=== PATIENT | male | born 1970 | race Caucasian/White ===

== ENCOUNTER 2016-12-25 17:40 | Observation (INO) ==
--- NOTE | 2016-12-25 18:07 | ED.PDOC ---
General ED Provider: Dr. MARIZOL HUDSON Chief Complaint: Psychiatric Complaint Stated Complaint: Patient brought in by brother and nephew whom he lives with after he didn't show up for work today and they found a note from him that stated "alcohol won" and it's "time to check out." Patient acknowledges writing note and admits to suididal ideation. He has no plan. Patient is an alcoholic who has been "dry" since doing inpatient therapy in June 2016. Denies recent alcohol use or overdosing on anything. Time Seen by Physician: 18:01 Mode of Arrival: Walk-In Information Source: Patient Exam Limitations: No limitations Primary Care Provider: HUMZA ARIAS Nursing and Triage Documentation Reviewed and Agree: Yes Psychological Complaint Exam - Psychiatric Complaint/Exam Patient Complains Of: Present: Depression, Suicidal thoughts Onset/Duration: unclear, voiced them to day Symptoms Are: Still present Timing: Constant Initial Severity: Moderate Current Severity: Moderate Character: Present: Depressed Aggravating: Reports: Alcohol use Related History: Reports: Suicidal thoughts, Prior attempts (patient denies previous suicidal ideation but is listed as such for ED visit in 2011), Drug ingestion. Denies: Suicidal plan, Suicidal gestures, Homicidal thoughts, Homicidal plan, Homicidal gestures, Recent stressors Patient Accompanied By: Family Patient In Custody Of Police: No Social Withdrawal Present: Yes Social Isolation Present: No Prior Suicide Attempt: No Injury From Prior Suicide Attempt: No Related Surgical History: Reports: None Patient Uncooperative For Exam: No Mood: Present: Depressed Appearance: Present: Clean Thought Process: Present: Logical Insight: Present: Good Memory: Intact Judgement: Normal Danger To Others: No Patient Medically Stable For: Psych evaluation, Referral, Transfer Differential Diagnoses: Depression, Suicidal Ideation Review of Systems - Review Of Systems Constitutional: Reports: No symptoms Eyes: Reports: No symptoms Ears, Nose, Mouth, Throat: Reports: No symptoms Respiratory: Reports: No symptoms Cardiac: Reports: No symptoms GI: Reports: No symptoms : Reports: No symptoms Musculoskeletal: Reports: No symptoms Skin: Reports: No symptoms Neurological: Reports: Depressed All Other Systems: Other (Psychiatric: depressed about his alcoholism. Denies any other issues.) Past Medical History - Past Medical History Previously Healthy: Yes Endocrine: Reports: None Cardiovascular: Reports: Hypertension Respiratory: Reports: None Hematological: Reports: None Gastrointestinal: Reports: None Genitourinary: Reports: None Neuro/Psych: Reports: None Musculoskeletal: Reports: None, Other (left knee damaged in high school. painful and unstable x many years. Ortho told him he's too young for a TKA which otherwise is the appropriate therapy) Cancer: Reports: None Other Pertinent Past Medical History: Alcoholism - Surgical History General Surgical History: Reports: None - Family History Family History: Reports: None - Social History Smoking Status: Current every day smoker, Light tobacco smoker (1/2 PPD) Hx Substance Use: No Alcohol Screening: Heavy (beer - denies recent ingestion) Lives: With family (brother and nephew) - Immunizations Tetanus Shot up to Date: No Influenza Vaccine within 12 Months: No Pneumococcal Vaccine up to Date: No Physical Exam - Physical Exam Appearance: Well-appearing, Well-nourished Ill-appearing: None Pain Distress: None Eyes: ROSITA, EOMI, Conjunctiva clear ENT: Ears normal, Nose normal, Oropharynx normal Neck: Supple Respiratory: Airway patent, Breath sounds clear, Breath sounds equal, Respirations nonlabored Cardiovascular: RRR, Pulses normal, No rub, No murmur GI/: Soft, Nontender, No masses, Bowel sounds normal, No Organomegaly Musculoskeletal: Normal strength, ROM intact, No edema, No calf tenderness Skin: Warm, Dry, Normal color Neurological: Sensation intact, Motor intact, Reflexes intact, Cranial nerves intact, Alert, Oriented Psychiatric: Depressed Interpretation - EKG Interpretation Time of EKG #1: 18:18 Rate: Normal Rhythm: Sinus Ectopy: None [place]: NL ST Segment: Normal Interpretation: possible septal infacrt, age undetermined Physician Notification - Case Discussed Endorsed To/Discussed With: Dr. Ayers Time of Discussion: 19:00 Critical Care Note - Critical Care Note Total Time (mins): 0 Course - Course Hematology/Chemistry: 12/25/16 18:17 12/25/16 18:17 Orders, Labs, Meds: Lab Review 12/25/16 12/25/16 12/25/16 18:17 18:17 18:17 WBC 5.76 RBC 4.35 L Hgb 14.4 Hct 40.3 L MCV 92.6 MCH 33.1 H MCHC 35.7 H RDW Coeff of Sarbjit 11.9 Plt Count 266 Immature Gran % (Auto) 0.2 Neut % (Auto) 55.5 Lymph % (Auto) 33.7 [place] % (Auto) 8.0 Eos % (Auto) 1.7 Baso % (Auto) 0.9 Immature Gran # (Auto) 0.0 Neut # 3.2 Lymph # 1.9 [place] # 0.5 Eos # 0.1 Baso # 0.1 Sodium 141 Potassium 3.7 Chloride 104 Carbon Dioxide 24 Anion Gap 16.7 BUN 10 Creatinine 0.82 Estimated GFR (MDRD) 101.00 BUN/Creatinine Ratio 12.19 Glucose 84 Calcium 9.1 Total Bilirubin 0.32 AST 19 ALT 15 Alkaline Phosphatase 59 Total Protein 7.2 Albumin 4.0 Globulin 3.2 Albumin/Globulin Ratio 1.25 TSH 0.871 Urine Color Yellow Urine Clarity Clear Urine pH 5.5 Ur Specific [place] <=1.005 Urine Protein Negative Urine Glucose (UA) Negative Urine Ketones Trace Urine Blood Negative Urine Nitrite Negative Urine Bilirubin Negative Urine Urobilinogen 0.2 Ur Leukocyte Esterase Negative Salicylate Level mg/dL < 5.0 Urine Opiates Screen Ur Oxycodone Screen Urine Methadone Screen Ur Propoxyphene Screen Acetaminophen < 3 L Ur Barbiturates Screen U Tricyclic Antidepress Ur Phencyclidine Scrn Ur Amphetamine Screen U Methamphetamines Scrn U Benzodiazepines Scrn Urine Cocaine Screen U Cannabinoids Screen Plasma/Serum Alcohol 243.0 H 12/25/16 18:17 WBC RBC Hgb Hct MCV MCH MCHC RDW Coeff of Sarbjit Plt Count Immature Gran % (Auto) Neut % (Auto) Lymph % (Auto) [place] % (Auto) Eos % (Auto) Baso % (Auto) Immature Gran # (Auto) Neut # Lymph # [place] # Eos # Baso # Sodium Potassium Chloride Carbon Dioxide Anion Gap BUN Creatinine Estimated GFR (MDRD) BUN/Creatinine Ratio Glucose Calcium Total Bilirubin AST ALT Alkaline Phosphatase Total Protein Albumin Globulin Albumin/Globulin Ratio TSH Urine Color Urine Clarity Urine pH Ur Specific [place] Urine Protein Urine Glucose (UA) Urine Ketones Urine Blood Urine Nitrite Urine Bilirubin Urine Urobilinogen Ur Leukocyte Esterase Salicylate Level mg/dL Urine Opiates Screen Negative Ur Oxycodone Screen Negative Urine Methadone Screen Negative Ur Propoxyphene Screen Negative Acetaminophen Ur Barbiturates Screen Negative U Tricyclic Antidepress Negative Ur Phencyclidine Scrn Negative Ur Amphetamine Screen Negative U Methamphetamines Scrn Negative U Benzodiazepines Scrn Negative Urine Cocaine Screen Negative U Cannabinoids Screen Negative Plasma/Serum Alcohol Orders Category Date Time Status [facility] ADMISSION 12/25/16 22: 51 Active EKG-(ED ONLY) Stat CARDIO 12/25/16 18:09 Completed OXYGEN Routine CARDIO 12/25/16 22:52 Active ACTIVITY .BR with BRP CARE 12/25/16 22:51 Active INTAKE & OUTPUT Q8HR CARE 12/25/16 22:51 Completed TELEMETRY MONITORING TELE CARE 12/25/16 22:51 Active VITAL SIGNS Q4HR CARE 12/25/16 22:51 Active REGULAR DIET DIETARY 12/25/16 Breakfast Ordered ALCOHOL LEVEL [BLOOD ALCOHOL] Stat LAB 12/25/16 18:17 Completed ASPIRIN LEVEL [SALICYLATE] Stat LAB 12/25/16 18:17 Completed CBC W/ AUTO DIFF Stat LAB 12/25/16 18:17 Completed COMPREHENSIVE METABOLIC PANEL Stat LAB 12/25/16 18:17 Completed THYROID STIMULATING HORMONE Stat LAB 12/25/16 18:17 Completed TYLENOL LEVEL [ACETAMINOPHEN] Stat LAB 12/25/16 18:17 Completed URINALYSIS C & S IF INDICATED Stat LAB 12/25/16 18:17 Completed URINE DRUG SCREEN (RAPID FOR ED) [DRUG SCREEN, URINE, LAB 12/25/16 18:17 Completed RAPID] Stat Sodium Chloride 0.9% [Sodium Chloride] 1,000 ml MEDS 12/25/16 23:00 Active Mvi, Adult No.1 with Vit K [Infuvite Adult] 10 ml IV 83 mls/hr Sodium Chloride 0.9% [Sodium Chloride] 1,000 ml MEDS 12/25/16 23:00 Active IV 75 mls/hr Vitamin B-1 Inj [Thiamine] MEDS 12/25/16 22:52 Discontinued 100 mg IVP ONCE STA RESUSCITATION STATUS Routine OTHERS 12/25/16 22:51 Ordered Medications Generic Name Dose Route Start Last Admin Trade Name Freq PRN Reason Stop Dose Admin Sodium Chloride 1,000 mls @ 75 mls/hr 12/25/16 23:00 Sodium Chloride IV .[id number] GWENDOLYN Multivitamins/Minerals 10 ml/ 1,010 mls @ 83 mls/hr 12/25/16 23:00 12/25/16 23:55 Sodium Chloride IV 83 mls/hr .[id number] GWENDOLYN Administration Sodium Chloride 1 syr 12/25/16 23:48 Saline Flush IVF PRN PRN To flush IV Discontinued Medications Generic Name Dose Route Start Last Admin Trade Name Freq PRN Reason Stop Dose Admin Thiamine HCl 100 mg 12/25/16 22:52 12/25/16 23:54 Thiamine IVP 12/25/16 22:53 100 mg ONCE STA Administration Vital Signs: Temp Pulse Resp BP Pulse Ox 12/25/16 17:41 98.8 F 129 H 20 107/77 95 Departure - Departure Time of Disposition: 23:00 Disposition: PLACED OBSERVATION Discharge Problem: Depression with suicidal ideation, Alcoholism Discharge Problem: (Ruled Out): Depression Condition: Good Pt referred to PMD for follow-up: Yes (Follow up after discharge) Allergies/Adverse Reactions: Allergies No Known Allergies Allergy (Verified 12/25/16 17:49) Home Medications: Ambulatory Orders 1 [No Reported Medications] 12/25/16 Disposition Discussed With: Patient (by Dr. Lala), Family (by Dr. Lala)
[2016-12-25 18:21] LABS: BASOPHILS # (AUTO) 0.1 K/uL (0-0.2); BASOPHILS % (AUTO) 0.9 % (0.0-3.0); EOSINOPHILS # (AUTO) 0.1 K/ul (0.0-0.7); EOSINOPHILS % (AUTO) 1.7 % (0.0-7.0); HEMATOCRIT 40.3 % (42.0-52.0); HEMOGLOBIN 14.4 g/dl (14.0-18.0); IMMATURE GRANULOCYTE % (AUTO) 0.2 % (0.0-5.0); LYMPHOCYTES # (AUTO) 1.9 K/uL (0.60-3.4); LYMPHOCYTES % (AUTO) 33.7 (10.0-50.0); MEAN CORPUSCULAR HEMOGLOBIN 33.1 pg (27.0-31.0); MEAN CORPUSCULAR HGB CONC 35.7 (31.8-35.4); MEAN CORPUSCULAR VOLUME 92.6 fl (80.0-94.0); MONOCYTES # (AUTO) 0.5 K/uL (0.4-2.0); NEUTROPHILS # (AUTO) 3.2 K/ul (2.0-6.9); NEUTROPHILS % (AUTO) 55.5; PLATELET COUNT 266 10^3/uL (140-440); RED BLOOD COUNT 4.35 10^6/ul (4.70-6.10); WHITE BLOOD COUNT 5.76 K/ul (4.2-10.2)
[2016-12-25 18:23] LABS: BILIRUBIN,URINE Negative (NEGATIVE); KETONES,URINE Trace (NEGATIVE); LEUKOCYTE ESTERASE ,URINE Negative (NEGATIVE); NITRITE,URINE Negative (NEGATIVE); PH,URINE 5.5 (5-9); PROTEIN,URINE Negative (NEGATIVE); URINE, BLOOD Negative (NEGATIVE)
[2016-12-25 18:29] LABS: ADD URINE MICROSCOPIC NO
[2016-12-25 18:33] LABS: COCAIN SCREEN,URINE NEGATIVE (NEGATIVE)
[2016-12-25 19:01] LABS: ACETAMINOPHEN < 3 ug/ml (10-30); ALANINE AMINOTRANSFERASE 15 U/L (12-78); ALBUMIN/GLOBULIN RATIO 1.25; ALKALINE PHOSPHATASE 59 U/L (50-136); ANION GAP 16.7; ASPARTATE AMINO TRANSFERASE 19 U/L (15-37); BILIRUBIN,TOTAL 0.32 mg/dL (0.00-1.20); BLOOD UREA NITROGEN 10 mg/dL (7-18); BUN/CREATININE RATIO 12.19; CALCIUM 9.1 mg/dL (8.2-10.2); CARBON DIOXIDE 24 mmol/L (21-32); CHLORIDE 104 mmol/L (98-107); CREATININE 0.82 mg/dL (0.60-1.10); GLUCOSE 84 mg/dL (70-100); POTASSIUM 3.7 mmol/L (3.5-5.1); SALICYLATE < 5.0 mg/dL (2.8-20.0); SODIUM 141 mmol/L (136-145); TOTAL PROTEIN 7.2 g/dL (6.4-8.2)
[2016-12-25] MEDS ORDERED: THIAMINE IVP STA (22:52)
[2016-12-25] MEDS ORDERED: SODIUM CHLORIDE 1,000 ML IV SCH (23:00)
[2016-12-25] MEDS ORDERED: INFUVITE ADULT 10 ML in SODIUM CHLORIDE 1,000 ML IV SCH (23:00)
[2016-12-25] MEDS ORDERED: INFUVITE ADULT IV ONE (23:48)
[2016-12-26 00:20] VITALS: BMI 17.7
[2016-12-26 10:08] VITALS: BP 110/80; TEMP 98.6
--- NOTE | 2017-01-05 15:02 | SSS ---
DATE OF SERVICE: 12/26/16 CHIEF COMPLAINT: The patient is having suicidal thoughts. HISTORY OF PRESENT ILLNESS: This is a 46-year-old male who was brought to the emergency room by the family. He has been having thoughts of hurting himself and left a note at brother's son that stated he wanted to commit suicide. He was reluctant to discuss with the nurse, has problems with alcohol and had been drinking today. The patient was evaluated initially by Dr. Beltran. Blood alcohol level was 243. Mental Health was called and came and talked with the patient and advised placement for the patient but said they would not take the patient until alcohol level was normal. At that time, the patient was admitted to hospital for observation. PAST MEDICAL HISTORY: Hypertension Coronary artery disease - did not specify what time Diverticulosis Depression Substance use Alcohol use Nicotine use PAST SURGICAL HISTORY: None SOCIAL HISTORY: . FAMILY HISTORY: Significant for breast cancer. ALLERGIES: NKDA MEDICATIONS: (HOME) NONE REVIEW OF SYSTEMS: CONSTITUTIONAL: No night sweats. No fatigue, malaise, lethargy. No fever or chills. HEENT: Eyes: No visual changes. No eye pain. No eye discharge. ENT: No runny nose. No epistaxis. No sinus pain. No sore throat. No odynophagia. No ear pain. No congestion. RESPIRATORY: No cough, no congestion. No hemoptysis. No shortness of breath. CARDIOVASCULAR: No angina symptoms. No CHF symptoms. No atypical chest pain for CAD. No palpitations. No orthopnea. GASTROINTESTINAL: No abdominal pain. No nausea or vomiting. No diarrhea or constipation. No hematemesis. No hematochezia. GENITOURINARY: No dysuria. No hematuria. No obstructive symptoms. No discharge. No pain. No significant abnormal bleeding. MUSCULOSKELETAL: Aches and pains. NEUROLOGICAL: Awake, alert, oriented to time, place and person. No headache. No neck pain. No syncope. No seizures. No dizziness. PSYCHIATRIC: Sad, frustrated. Suicidal ideation. Not anxious. No depression. No suicidal thoughts. No homicidal thoughts. SKIN: No rash. No lesions. No wounds. ENDOCRINE: No unexplained weight loss. No weight gain. HEMATOLOGIC/LYMPHATIC: No anemia. No purpura. No petechiae. No prolonged or excessive bleeding. No palpable lymph nodes. PHYSICAL EXAMINATION: VITAL SIGNS: BP 136/82, respiratory rate 20, heart rate 78, temperature 98.1, saturation 98%. GENERAL: Cachetic male lying in bed not in any distress. HEENT: Head normocephalic, atraumatic. Eyes: Extraocular muscles are intact. Pupils are equal, round and reactive to light and accommodation. Ears: No lesions. Nose appeared normal. Throat: No exudate or erythema. NECK: Supple. No JVD, no carotid bruit. No lymphadenopathy or thyromegaly. LUNGS: Clear to auscultation. Percussion note normal. Chest symmetrical. HEART: S1, S2, no S3. No murmurs. No cyanosis or clubbing. No ascites. Pulses: Dorsalis pedis and posterior tibial pulses +1 to +2 both sides. ABDOMEN: Soft. Nontender. Bowel sounds active. No CVA tenderness. No mass felt. EXTREMITIES: No edema. Full range of motion of all extremities, equal. NEUROLOGIC: No focal deficit. Cranial nerves II through XII are grossly intact. No headache, no double vision or headache. SKIN: Not dry. Intact. Turgor - normal. LYMPHATIC: No palpable lymph nodes/no lymphedema. MUSCULOSKELETAL: Normal joints with no swelling. Muscle tone is normal. Old/present records reviewed Office records reviewed. LABS/EKG'S/X-RAY/ECHO/ABG: White count 5.76, hemoglobin 14.4, hematocrit 40.3, platelet count 266. Sodium 141, potassium 3.7, chloride 104, bicarb 24, BUN 10, creatinine 0.82. Urine is normal. Toxicology: Initial blood alcohol level is 243. The rest of the drug screen is negative. PROGRESS NOTES: See EMR. BRIEF HOSPITAL COURSE: The patient admitted to the hospital, started on IV fluids, given MVI and Librium p.r.n. Repeat blood work showed alcohol level less than 10. Meanwhile the patient had a bed at the [facility] in [place]. The patient was transferred by [place]. FINAL DIAGNOSES: 1. ALCOHOL INTOXICATION 2. SUICIDAL IDEATION 3. HYPERTENSION 4. DYSLIPIDEMIA PLAN: Discharge patient to [facility]. The patient is wanting to have inpatient and cure treatment. Stable at time of discharge. TIME SPENT: More than 75 minutes. [facility]
== END 2016-12-26 13:50 ==
LOC: ED 17:40 → MEDSURG B 23:02
PROVIDERS: ADMIT Emergency Medicine; ATTEND Emergency Medicine
DX: F10.229 Alcohol dependence with intoxication, unspecified (principal); R45.851 Suicidal ideations; F32.9 Major depressive disorder, single episode, unspecified; Y90.8 Blood alcohol level of 240 mg/100 ml or more; F17.200 Nicotine dependence, unspecified, uncomplicated; I10 Essential (primary) hypertension; E78.5 Hyperlipidemia, unspecified
CPT/HCPCS: 36415; 80053; 80306; 80307; 81001; 84443; 85025; 93005; 93010; 99285